=== PATIENT | female | born 1970 | race Caucasian/White ===

== ENCOUNTER → 2016-10-20 | Outpatient (CLI) | payer MEDICAID ==
[~2016-10-20] VITALS: Ht 170.2 cm; Wt 76.2 kg
[~2016-10-20] MED LIST: LEXA1TAB PO
[2016-10-20] MEDS: NS 1,000 ML IV SCH ×2 (07:45→08:38)
--- NOTE | 2016-10-20 09:17 | ROOR ---
Patient Name: Leydi Blanchard Procedure Date: 10/20/2016 9:03 AM Date of : 1970 Age: 46 Room: M OPP Gender: Female Note Status: Finalized Procedure: Upper GI endoscopy Indications: Generalized abdominal pain, Abnormal CT of the GI tract Providers: Thanh HERNANDEZ MD Referring MD: LIBIA MCKINLEY DO Requesting Provider: Medicines: Monitored Anesthesia Care Complications: No immediate complications. Procedure: Pre-Anesthesia Assessment: - The heart rate, respiratory rate, oxygen saturations, blood pressure, adequacy of pulmonary ventilation, and response to care were monitored throughout the procedure. The Endoscope was introduced through the mouth, and advanced to the third part of duodenum. The upper GI endoscopy was accomplished without difficulty. The patient tolerated the procedure well. Findings: The esophagus was normal. The stomach was normal. The examined duodenum was normal. Impression: - Normal esophagus. - Normal stomach. - Normal examined duodenum. - No specimens collected. Recommendation: - Continue present medications. Thanh Hernandez MD Thanh HERNANDEZ MD 10/20/2016 9:17:32 AM This report has been signed electronically. Number of Addenda: 0 Note Initiated On: 10/20/2016 9:03 AM Estimated Blood Loss: Estimated blood loss: none.
--- NOTE | 2016-10-20 09:31 | ROOR ---
Patient Name: Leydi Blanchard Procedure Date: 10/20/2016 9:04 AM Date of : 1970 Age: 46 Room: [id number] Gender: Female Note Status: Finalized Procedure: Colonoscopy Indications: Generalized abdominal pain, Hematochezia, Change in bowel habits Providers: Thanh HERNANDEZ MD Referring MD: LIBIA MCKINLEY DO Requesting Provider: Medicines: Monitored Anesthesia Care Complications: No immediate complications. Procedure: Pre-Anesthesia Assessment: - The heart rate, respiratory rate, oxygen saturations, blood pressure, adequacy of pulmonary ventilation, and response to care were monitored throughout the procedure. The Colonoscope was introduced through the anus and advanced to 10 cm into the ileum. The colonoscopy was performed without difficulty. The patient tolerated the procedure well. The quality of the bowel preparation was good. Findings: The perianal and digital rectal examinations were normal. Internal hemorrhoids were found during retroflexion. The hemorrhoids were small. The terminal ileum appeared normal. The entire examined colon appeared normal on direct and retroflexion views. (Exam: Complete, Prep: Good or Excellent.) Impression: - Internal hemorrhoids. - The examined portion of the ileum was normal. - The entire examined colon is normal on direct and retroflexion views. - (Exam: Complete, Prep: Good or Excellent.) - No specimens collected. - (Irritable Bowel Syndrome/IBS suspected.) Recommendation: - Use fiber, for example Citrucel, Fibercon, Konsyl or Metamucil. - Use Bentyl (dicyclomine) 20 mg PO TID 30 min AC for 1 month. - (the script was sent to your pharmacy on file) Thanh Hernandez MD Thanh HERNANDEZ MD 10/20/2016 9:31:02 AM This report has been signed electronically. Number of Addenda: 0 Note Initiated On: 10/20/2016 9:04 AM Estimated Blood Loss: Estimated blood loss: none.
[2016-10-20 09:46] VITALS: BP 108/67
== END ==
LOC: M OPP 08:05
PROVIDERS: ATTEND Internal Medicine Gastroenterology
DX: K92.1 Melena (principal); K64.0 First degree hemorrhoids; R10.84 Generalized abdominal pain; R19.4 Change in bowel habit; R93.3 Abnormal findings on diagnostic imaging of other parts of digestive tract; Z87.19 Personal history of other diseases of the digestive system; Z87.442 Personal history of urinary calculi; Z87.891 Personal history of nicotine dependence; Z79.899 Other long term (current) drug therapy; Z86.79 Personal history of other diseases of the circulatory system